=== PATIENT | female | born 1975 | race Caucasian/White ===

== ENCOUNTER → 2017-09-26 | Outpatient (CLI) | payer OTHER ==
[~2017-09-26] MED LIST: CONTRAST GIVEN MC
[2017-09-26] MEDS: IOHEXOL 180 MG/ML 10 ML VIAL. IT (10:50)
[2017-09-26] MEDS: LIDOCAINE 1% Multi-Dose 20 ML VIAL. ID (10:50)
== END | disposition home or self-care (01) ==
LOC: KCIC 09:59
DX: M48.061 Spinal stenosis, lumbar region without neurogenic claudication (principal); M51.16 Intervertebral disc disorders with radiculopathy, lumbar region; Z98.1 Arthrodesis status
CPT/HCPCS: 72132; 72265

== ENCOUNTER → 2017-11-20 | Outpatient (CLI) | payer OTHER ==
[2017-11-20 20:12] LABS: MRSA BY PCR Negative (Negative)
== END | disposition home or self-care (01) ==
LOC: SURGPAT 10:24
DX: Z01.818 Encounter for other preprocedural examination (principal); M48.062 Spinal stenosis, lumbar region with neurogenic claudication; M43.16 Spondylolisthesis, lumbar region
CPT/HCPCS: 36415; 87641; 93005

== ENCOUNTER → 2020-11-16 | Outpatient (CLI) | payer MEDICARE ==
[2017-11-28 06:36] VITALS: BP 160/94
[~2020-11-16] MED LIST changes: +BUPR100T7 PO; -CONTRAST GIVEN MC; +CYCL5TAB PO; +GABA-585 PO; +GLIP5TAB10 PO; +HYDR-2765 PO; +IBUP-1060 PO; +IOHEXOL 180 MG/ML 10 ML VIAL. IT ONE; +LIDOCAINE 1% Multi-Dose 20 ML VIAL. ID ONE; +LISI20TA18 PO; +METF500T16 PO; +NIFE30TA95 PO; +PARO10TA57 PO
--- NOTE | 2020-11-16 16:28 | KCIC ---
Lumbar myelogram 11/16/2020 Clinical History: Low back pain with bilateral leg pain. History of previous lumbar spine surgeries. Technique: After the risks and benefits of the procedure were explained to the patient, written infor med consent was obtained. The patient was placed prone on the fluoroscopy table and the lower back wa s prepped and draped in sterile fashion. 1% lidocaine was used as a local anesthetic. Under fluorosco pic guidance, the thecal sac of the lumbar cistern was punctured at the L2-L3 level using 25-gauge Wh itacre needle. After confirming clear CSF return, 15 cc of Omnipaque 180 were injected through the ne edle into the thecal sac of the lumbar cistern under fluoroscopic guidance. Following this the needle was removed and hemostasis achieved at the puncture site. A sterile bandage was placed on the skin p uncture site. AP, bilateral oblique, lateral and standing neutral, flexion and extension lateral digi liza radiographs of the lumbar spine were obtained. Following this the patient was taken to CT where a CT scan of the lumbar spine was performed. This will be reported separately. Following the examinat ions the patient was sent home with an instruction sheet. The patient tolerated the procedure well an d there were no immediate complications. The total fluoroscopic time for this procedure was 1 minute 13 seconds. 9 digital spot radiographs were obtained. Findings: The patient is post fusion using pedicle screws, stabilizing rods and bone graft material a t L4-5. Mild to moderate anterolisthesis of L4 in relation L5 is seen. Degenerative changes consistin g of disc space narrowing, vertebral endplate sclerosis and mild anterior and posterior vertebral bod y osteophyte formation are seen at L5-S1. A mild anterior extradural defect is seen upon the contrast column at L3-4. A mild to moderate anterior extradural defect is seen upon the contrast column at L5 -S1. There is no evidence of complete block of contrast at any level involving the lumbar vertebrae. The alignment of the lumbar vertebrae is maintained on the flexion and extension radiographs. Atheros clerotic calcification is seen involving the abdominal aorta. IMPRESSION: 1. Post fusion at L4-5. 2. A mild anterior extradural defect is seen upon the contrast column at L3-4. A mild to moderate ant erior extradural defect is seen upon the contrast column at L5-S1. Electronically signed by: Nhan Woodward MD (11/16/2020 4:26 PM) [id number]
--- NOTE | 2020-11-16 16:45 | KCIC ---
CT lumbar myelogram 11/16/2020 Clinical History: Low back pain which radiates down both legs. History of previous lumbar spine surge ry. Technique: This study was performed after a lumbar myelogram, contiguous, 0.625 mm axial sections wer e obtained through the lumbar spine. 3 mm sagittal, coronal and axial reconstructed images were obtai jamel. One or more of the following individualized dose reduction techniques were utilized for this study: 1. Automated exposure control. 2. Adjustment of the mA and/or kV according to patient size. 3. Use of iterative reconstruction technique. Findings: Comparison is made to the patient's lumbar myelogram performed earlier today. Comparison is made to the patient's CT lumbar myelogram dated 09/26/[address] of the lumbar spine dated 11/27/2017 . The sagittal and coronal reconstructed images demonstrate mild to moderate anterolisthesis of L4 in r elation L5. The patient is post left hemilaminotomy and fusion using pedicle screws, stabilizing rods and bone graft material at L4-5. Degenerative changes consisting of vertebral endplate sclerosis and minimal to mild anterior vertebral body osteophyte formation are seen at T12-L1, L2-3, L3-4 and L5-S 1. Loss of height of the L5-S1 disc is noted. A vacuum disc is seen at L5-S1. Atherosclerotic calcifi cation of the abdominal aorta and its branches is seen. At the T12-L1, L1-2 and L2-3 disc spaces there are minimal to mild generalized disc bulges. Degenerat mainor changes are seen involving the facet joints bilaterally. These findings do not result in signific ant central spinal canal or neural foraminal stenosis. At the L3-4 disc space there is a mild generalized disc bulge. This is eccentric to the left. Degener ative changes are seen involving the facet joints bilaterally. There is mild ligament flavum hypertro phy bilaterally. These findings do not result in significant central spinal canal or neural foraminal stenosis. At the L4-5 disc space a left paracentral posterior vertebral body osteophyte formation is seen which measures 1.2 cm in AP diameter. Degenerative changes are seen involving the facet joints bilaterally . These findings when combined with the anterolisthesis results in mild to moderate left greater than right central spinal canal stenosis. Mild to moderate left greater than right neural foraminal steno sis is seen. At the L5-S1 disc space there is a moderate generalized disc bulge. Degenerative changes are seen inv olving the facet joints bilaterally. These findings result in mild central spinal canal stenosis. Mil d bilateral neural foraminal stenosis is seen. IMPRESSION: 1. Post left hemilaminotomy and fusion at L4-5. 2. The changes of degenerative disc disease are seen involving lumbar spine. These findings result in mild to moderate left greater than right central spinal canal stenosis at L4-5 and mild central spin al canal stenosis at L5-S1. Mild to moderate left greater than right neural foraminal stenosis is see n at L4-5. Mild bilateral neural foraminal stenosis is seen at L5-S1. Electronically signed by: Nhan Woodward MD (11/16/2020 4:43 PM) [id number]
== END | disposition home or self-care (01) ==
LOC: KCIC 13:20
PROVIDERS: ATTEND Neurological Surgery
DX: M54.5 Low back pain (principal); M79.605 Pain in left leg; M79.604 Pain in right leg; M48.061 Spinal stenosis, lumbar region without neurogenic claudication; M51.36 Other intervertebral disc degeneration, lumbar region; I10 Essential (primary) hypertension; E11.9 Type 2 diabetes mellitus without complications; K21.9 Gastro-esophageal reflux disease without esophagitis; E66.9 Obesity, unspecified; F32.9 Major depressive disorder, single episode, unspecified; F17.210 Nicotine dependence, cigarettes, uncomplicated; Z79.84 Long term (current) use of oral hypoglycemic drugs; Z79.899 Other long term (current) drug therapy; Z98.890 Other specified postprocedural states; Z88.8 Allergy status to other drugs, medicaments and biological substances
CPT/HCPCS: 62304; 72132; J3490; Q9965